=== PATIENT | female | born 1960 | race Caucasian/White ===

== ENCOUNTER 2022-04-23 17:11 | Emergency (ER) | payer BC ==
[2022-04-23 18:14] LABS: HEMATOCRIT 38.3 % (37.0-47.0); HEMOGLOBIN 13.3 g/dL (12.5-16.0); MEAN CELL VOLUME 95 fl (78-100); MEAN CORPUSCULAR HEMOGLOBIN 33 pg (27-31); MEAN CORPUSCULAR HGB CONC 35 g/dL (33-37); MEAN PLATELET VOLUME 10.9 fl (7.4-10.4); PLATELET COUNT 151 K/mm3 (130-400); RED BLOOD COUNT 4.03 M/mm3 (4.10-5.30); RED CELL DISTRIBUTION WIDTH 13.3 % (11.5-14.5)
[2022-04-23 18:18] LABS: ALBUMIN 4.2 g/dL (3.4-4.8); POTASSIUM 3.8 mmol/L (3.5-5.1)
[2022-04-23 18:19] LABS: CALCIUM 9.8 mg/dL (8.3-10.5)
[2022-04-23 18:20] LABS: TOTAL PROTEIN 6.7 g/dL (6.2-8.1)
[2022-04-23 18:22] LABS: TOTAL BILIRUBIN 0.3 mg/dL (0.2-1.2)
[2022-04-23 18:30] LABS: WHITE BLOOD COUNT 26.7 K/mm3 (4.8-10.8)
[2022-04-23 18:36] LABS: BAND 3 % (0-10); LYMPHOCYTE 9 % (20-51); MONOCYTE 6 % (3-10)
[2022-04-23 18:37] LABS: NEUTROPHILS 82 % (42-75)
[2022-04-23 19:06] LABS: PH-URINE 6.5 (5.0 - 8.0); URINE APPEARANCE HAZY; URINE BILIRUBIN NEGATIVE (NEGATIVE); URINE BLOOD TRACE (NEGATIVE); URINE COLOR YELLOW; URINE GLUCOSE NEGATIVE (NEGATIVE); URINE KETONE 1+ (NEGATIVE); URINE LEUKOCYTE ESTERASE TRACE (NEGATIVE); URINE NITRATE NEGATIVE (NEGATIVE); URINE PROTEIN(semi-quant) TRACE (NEGATIVE); URINE UROBILINOGEN NORMAL (NORMAL)
[2022-04-23] MEDS ORDERED: ZYPREXA 5MG5 MG PO (22:48)
[2022-04-23 23:22] VITALS: BP 126/74
== END 2022-04-23 23:22 | disposition home or self-care (01) ==
LOC: ED 17:11
PROVIDERS: Family Medicine
DX: C50.919 Malignant neoplasm of unspecified site of unspecified female breast (principal); R11.2 Nausea with vomiting, unspecified; R19.7 Diarrhea, unspecified; E86.9 Volume depletion, unspecified; Z28.310 Unvaccinated for COVID-19
CPT/HCPCS: J2060; J2405; J2765; J3490; J7030